=== PATIENT | female | born 1975 | race Caucasian/White ===

== ENCOUNTER → 2016-11-01 | Outpatient (CLI) | payer BC | LOC: MC.RAD 13:20 | DX: Z12.31 Encounter for screening mammogram for malignant neoplasm of breast (principal); N63 Unspecified lump in breast ==

== ENCOUNTER → 2016-11-10 | Outpatient (CLI) | payer BC | LOC: MC.RAD 09:59 | DX: N64.89 Other specified disorders of breast (principal) ==

== ENCOUNTER → 2017-05-16 | Outpatient (CLI) | payer BC | LOC: MC.RAD 07:30 | DX: R92.8 Other abnormal and inconclusive findings on diagnostic imaging of breast (principal) ==

== ENCOUNTER → 2018-01-24 | Outpatient (CLI) | payer BC | LOC: MC.RAD 01-17 09:00 | DX: Z12.31 Encounter for screening mammogram for malignant neoplasm of breast (principal) ==

== ENCOUNTER → 2018-05-19 | Outpatient (CLI) | payer BC | LOC: COL.RAD 14:45 | DX: R59.0 Localized enlarged lymph nodes (principal) ==

== ENCOUNTER → 2019-05-01 | Outpatient (CLI) | payer BC | LOC: MC.RAD 09:40 | DX: Z12.31 Encounter for screening mammogram for malignant neoplasm of breast (principal) ==

== ENCOUNTER → 2020-05-29 | Outpatient (CLI) | payer BC | LOC: MC.RAD 08:38 | DX: Z12.31 Encounter for screening mammogram for malignant neoplasm of breast (principal) ==

== ENCOUNTER → 2021-07-09 | Outpatient (CLI) | payer BC | LOC: MC.RAD 07:21 | DX: Z12.31 Encounter for screening mammogram for malignant neoplasm of breast (principal) ==